=== PATIENT | male | born 1990 | race African-American/Black ===

== ENCOUNTER 2021-11-09 12:24 | Emergency (ER) | payer OTHER, SELFPAY ==
[~2021-11-09] VITALS: Ht 182.9 cm; Wt 149.0 kg
[2021-11-09] MEDS ORDERED: IBUPROFEN 600MG TABLET PO ONE (12:45)
[2021-11-09] MEDS ORDERED: KETOROLAC 60MG/2ML VIAL IM ONE (13:00)
[2021-11-09] MEDS ORDERED: IBUP-2029 MT (14:00)
[2021-11-09 14:36] VITALS: BP 126/66
[2021-11-09 14:45] LABS: METHADONE URINE SCREEN NEGATIVE (NEGATIVE); OPIATES URINE SCREEN NEGATIVE (NEGATIVE)
[2021-11-09 14:46] LABS: *AMPHETAMINES SCREEN URINE NEGATIVE (NEGATIVE); *BARBITURATES SCREEN URINE NEGATIVE (NEGATIVE); *BENZODIAZEPINES SCREEN URINE NEGATIVE (NEGATIVE); *COCAINE SCREEN URINE NEGATIVE (NEGATIVE); CANNABINOID URINE SCREEN NEGATIVE (NEGATIVE); PHENCYCLIDINE URINE SCREEN NEGATIVE (NEGATIVE)
== END 2021-11-09 14:42 | disposition home or self-care (01) ==
LOC: ER 12:34
DX: U07.1 COVID-19 (principal)
CPT/HCPCS: 71045; 80305; 87426; 87804; 93005; 96372; 99285; J1885

== ENCOUNTER 2022-11-26 07:33 | Emergency (ER) | payer MEDICAID, OTHER, SELFPAY ==
[~2022-11-26] VITALS: Ht 182.9 cm; Wt 148.0 kg
[~2022-11-26 07:33] MED LIST: IBUP-2029 MT
[2022-11-26 07:48] VITALS: BP 125/73
[2022-11-26] MEDS: IBUPROFEN 600MG TABLET PO ONE (09:18)
[2022-11-26] MEDS ORDERED: BACL20TA MT (09:53)
[2022-11-26] MEDS ORDERED: IBUP-2029 MT (09:53)
[2022-11-26] MEDS: LIDOCAINE 5% PATCH TOP ONE (09:57)
[2022-11-26] MEDS: ACETAMINOPHEN 325MG TABLET PO ONE (09:57)
== END 2022-11-26 10:07 | disposition home or self-care (01) ==
LOC: ER 07:33
DX: R07.89 Other chest pain (principal); Z00.00 Encounter for general adult medical examination without abnormal findings; Z79.899 Other long term (current) drug therapy; Z59.00 Homelessness unspecified
CPT/HCPCS: 71045; 93005; 99283